=== PATIENT | male | born 1970 | race American Indian/Alaskan Native ===

== ENCOUNTER 2019-02-04 07:34 | Emergency (ER) | payer BC ==
[2019-02-04 07:47] VITALS: BP 138/73
[2019-02-04] MEDS ORDERED: Sodium Chloride 0.9% 1,000 ML IV ONE (07:57)
[2019-02-04] MEDS ORDERED: Ketorolac 30 MG/ML SDV IVPUSH ONE (08:00)
[2019-02-04] MEDS ORDERED: Ondansetron 4 MG/2 ML SDV ONE (08:02)
[2019-02-04] MEDS ORDERED: Ondansetron 4 MG Tab.DIS PO ONE (08:02)
[2019-02-04] MEDS ORDERED: Ondansetron 4 MG/2 ML SDV IVPUSH ONE (08:06)
--- NOTE | 2019-02-04 08:16 | EDM.PDOC ---
<Brittany Paige - Last Filed: 02/04/19 08:29> ED HPI GENERAL MEDICAL PROBLEM - General Chief Complaint: Abdominal Pain Stated Complaint: DIZZINESS,NAUSEA,ABDOMINAL CRAMPS Time Seen by Provider: 02/04/19 08:00 - History of Present Illness INITIAL COMMENTS - FREE TEXT/NARRATIVE: This is Dr. Paige dictating an addendum note as I am the supervising physician on this case. I personally seen and evaluated the patient and agree with above history and physical exam. On my personal evaluation the patient tells me he has had this pain on and off for at least a year if not longer and had a colonoscopy and endoscopy in the past which we have not documented as 2014. He says that he gets the pain in this left lower abdomen at least once a week and just allows it to subside naturally. He says that he does see blood in his stool when the pain happens and has some nausea but doesn't get any fevers or chills. He is vague about describing the pain. On my physical exam he has very minimal tenderness to deep palpation in the left lower quadrant and his bowel sounds are hypoactive and there is tympany on percussion of the upper abdomen. The patient is nontoxic-appearing and vitals have been reviewed. Not tremulous. All Above lab work and CAT scan will be reviewed for disposition. Have discussed with the patient that he likely needs repeat colonoscopy as it is been 4 years since his prior workup and there may be some new or evolving findings that need to be evaluated. He is aware of her limitation the ED and has seen one of our mid-level providers in the clinic in the past and can be referred back. - Related Data Allergies Allergy/AdvReac Type Severity Reaction Status Date / Time No Known Allergies Allergy Verified 02/04/19 07:47 Home Meds: Home Meds . [No Known Home Meds] 07/28/15 [History] Course - Vital Signs Last Recorded V/S: Last Vital Signs Temp 36.7 C 02/04/19 07:45 Pulse 68 02/04/19 07:45 Resp 18 02/04/19 07:45 BP 138/73 02/04/19 07:45 Pulse Ox 100 02/04/19 07:45 - Orders/Labs/Meds Labs: Laboratory Tests 02/04/19 02/04/19 02/04/19 Range/Units 07:58 07:58 07:58 WBC 7.66 (4.0-11.0) K/uL RBC 4.15 L (4.50-5.90) M/uL Hgb 14.0 (13.0-17.0) g/dL Hct 41.2 (38.0-50.0) % MCV 99.3 H (80.0-98.0) fL MCH 33.7 H (27.0-32.0) pg MCHC 34.0 (31.0-37.0) g/dL RDW Std Deviation 44.6 (28.0-62.0) fl RDW Coeff of [place] 12 (11.0-15.0) % Plt Count 277 (150-400) K/uL MPV 9.30 (7.40-12.00) fL Neut % (Auto) 76.6 (48.0-80.0) % Lymph % (Auto) 15.5 L (16.0-40.0) % Bland % (Auto) 7.2 (0.0-15.0) % Eos % (Auto) 0.4 (0.0-7.0) % Baso % (Auto) 0.3 (0.0-1.5) % Neut # (Auto) 5.9 H (1.4-5.7) K/uL Lymph # (Auto) 1.2 (0.6-2.4) K/uL Bland # (Auto) 0.6 (0.0-0.8) K/uL Eos # (Auto) 0.0 (0.0-0.7) K/uL Baso # (Auto) 0.0 (0.0-0.1) K/uL Nucleated RBC % 0.0 /100WBC Nucleated RBCs # 0 K/uL Lactate 1.7 (0.20-2.00) mmol/L Sodium 139 (136-148) mmol/L Potassium 4.1 (3.5-5.1) mmol/L Chloride 104 (98-107) mmol/L Carbon Dioxide 23.1 (21.0-32.0) mmol/L BUN 12 (7.0-18.0) mg/dL Creatinine 0.9 (0.8-1.3) mg/dL Est Cr Clr Drug Dosing 95.55 mL/min Estimated GFR (MDRD) > 60.0 ml/min Glucose 106 (74-106) mg/dL Calcium 8.6 (8.5-10.1) mg/dL Total Bilirubin 0.4 (0.2-1.0) mg/dL AST 43 H (15-37) IU/L ALT 22 (14-63) IU/L Alkaline Phosphatase 77 (46-116) U/L Total Protein 7.5 (6.4-8.2) g/dL Albumin 3.7 (3.4-5.0) g/dL Globulin 3.8 (2.6-4.0) g/dL Albumin/Globulin Ratio 1.0 (0.9-1.6) Urine Color Urine Appearance Urine pH (5.0-8.0) Ur Specific [place] (1.001-1.035) Urine Protein (NEGATIVE) mg/dL Urine Glucose (UA) (NEGATIVE) mg/dL Urine Ketones (NEGATIVE) mg/dL Urine Occult Blood (NEGATIVE) Urine Nitrite (NEGATIVE) Urine Bilirubin (NEGATIVE) Urine Urobilinogen (<2.0) EU/dL Ur Leukocyte Esterase (NEGATIVE) 02/04/19 Range/Units 08:08 WBC (4.0-11.0) K/uL RBC (4.50-5.90) M/uL Hgb (13.0-17.0) g/dL Hct (38.0-50.0) % MCV (80.0-98.0) fL MCH (27.0-32.0) pg MCHC (31.0-37.0) g/dL RDW Std Deviation (28.0-62.0) fl RDW Coeff of [place] (11.0-15.0) % Plt Count (150-400) K/uL MPV (7.40-12.00) fL Neut % (Auto) (48.0-80.0) % Lymph % (Auto) (16.0-40.0) % Bland % (Auto) (0.0-15.0) % Eos % (Auto) (0.0-7.0) % Baso % (Auto) (0.0-1.5) % Neut # (Auto) (1.4-5.7) K/uL Lymph # (Auto) (0.6-2.4) K/uL Bland # (Auto) (0.0-0.8) K/uL Eos # (Auto) (0.0-0.7) K/uL Baso # (Auto) (0.0-0.1) K/uL Nucleated RBC % /100WBC Nucleated RBCs # K/uL Lactate (0.20-2.00) mmol/L Sodium (136-148) mmol/L Potassium (3.5-5.1) mmol/L Chloride (98-107) mmol/L Carbon Dioxide (21.0-32.0) mmol/L BUN (7.0-18.0) mg/dL Creatinine (0.8-1.3) mg/dL Est Cr Clr Drug Dosing mL/min Estimated GFR (MDRD) ml/min Glucose (74-106) mg/dL Calcium (8.5-10.1) mg/dL Total Bilirubin (0.2-1.0) mg/dL AST (15-37) IU/L ALT (14-63) IU/L Alkaline Phosphatase (46-116) U/L Total Protein (6.4-8.2) g/dL Albumin (3.4-5.0) g/dL Globulin (2.6-4.0) g/dL Albumin/Globulin Ratio (0.9-1.6) Urine Color YELLOW Urine Appearance CLEAR Urine pH 7.0 (5.0-8.0) Ur Specific [place] 1.015 (1.001-1.035) Urine Protein NEGATIVE (NEGATIVE) mg/dL Urine Glucose (UA) NEGATIVE (NEGATIVE) mg/dL Urine Ketones NEGATIVE (NEGATIVE) mg/dL Urine Occult Blood NEGATIVE (NEGATIVE) Urine Nitrite NEGATIVE (NEGATIVE) Urine Bilirubin NEGATIVE (NEGATIVE) Urine Urobilinogen 0.2 (<2.0) EU/dL Ur Leukocyte Esterase NEGATIVE (NEGATIVE) Meds: Medications Discontinued Medications Generic Name Dose Route Start Last Admin Trade Name Freq PRN Reason Stop Dose Admin Sodium Chloride 1,000 mls @ 999 mls/hr 02/04/19 07:57 02/04/19 08:12 Normal Saline IV 02/04/19 08:57 999 mls/hr STAT ONE Administration Iopamidol 100 ml 02/04/19 09:21 02/04/19 09:21 Isovue Multipack-370 (76%) IVPUSH 07/01/19 09:22 100 ml ONETIME ONE Administration Ketorolac Tromethamine 30 mg 02/04/19 08:00 02/04/19 08:10 Toradol IVPUSH 02/04/19 08:01 30 mg ONETIME ONE Administration Ondansetron HCl 4 mg 02/04/19 08:02 02/04/19 08:07 Zofran Odt PO 02/04/19 08:03 Not Given ONETIME ONE Ondansetron HCl Confirm 02/04/19 08:02 02/04/19 08:07 Zofran Administered 02/04/19 08:03 Not Given Dose 4 mg .ROUTE .STK-MED ONE Ondansetron HCl 4 mg 02/04/19 08:06 02/04/19 08:10 Zofran IVPUSH 02/04/19 08:07 4 mg ONETIME ONE Administration Departure - Departure Disposition: Home, Self-Care 01 Clinical Impression: Abdominal pain Qualifiers: Abdominal location: left lower quadrant Qualified Code(s): R10.32 - Left lower quadrant pain - Discharge Information Referrals: PCP,None [Primary Care Provider] - Forms: ED Department Discharge Additional Instructions: Follow-up with you PCP in 1-2 weeks. Keep hydrated. I've sent prescriptions for your abdominal pain and nausea to your pharmacy. Return to the ED if getting worse, fevers, vomiting. <Aiden Cueto - Last Filed: 02/04/19 09:55> ED HPI GENERAL MEDICAL PROBLEM - History of Present Illness INITIAL COMMENTS - FREE TEXT/NARRATIVE: 48 y/o male presenting to the ER complaining of LLQ abdominal rated 8/10 since this morning. Some nausea, no vomiting. Endorsing diarrhea with some blood. Has had previous similar episode few years ago and lasted few days. Chart review shows that last colonoscopy was in 2014. Denies any history of diverticulosis. No chest pain, vomiting, dyspnea. No dysuria, new rashes or joint pains. No other sick contacts at home. No fevers. Last drink was last night drinking 3 beers. Left Lower Abdomen Pain Score (Numeric/FACES): 8 Past Medical History - Past Health History Medical/Surgical History: Denies Medical/Surgical History Respiratory History: Reports: Other (See Below) Other Respiratory History: Denies any problems, reports 30 yr history of smoking , current use 1 pack per day Gastrointestinal History: Reports: Hemorrhoids Other Gastrointestinal History: Abdominal pain, burning, 'only thing that helps is drinking fluids and laying down Musculoskeletal History: Reports: Fracture Other Musculoskeletal History: hx: Fracturing a finger - Infectious Disease History Infectious Disease History: Reports: Chicken Pox, Measles, Mumps - Past Surgical History GI Surgical History: Reports: Other (See Below) Social & Family History - Family History Family Medical History: Noncontributory - Tobacco Use Smoking Status *Q: Current Every Day Smoker Years of Tobacco use: 40 Packs/Tins Daily: 1 - Alcohol Use Days Per Week of Alcohol Use: 7 Number of Drinks Per Day: 3 Total Drinks Per Week: 21 - Recreational Drug Use Recreational Drug Use: No ED ROS GENERAL - Review of Systems Review Of Systems: ROS reveals no pertinent complaints other than HPI. ED EXAM, GI/ABD - Physical Exam Exam: See Below General Appearance: Alert, Anxious Respiratory/Chest: No Respiratory Distress, Lungs Clear, Normal Breath Sounds Cardiovascular: Normal Peripheral Pulses, Regular Rate, Rhythm, No Edema, No JVD GI/Abdominal Exam: Other (soft, active bowel sounds. Tender in LLQ. No rebound. Negative Benoit's, no RLQ pain. Negative leg raise.) Rectal (Males) Exam: Normal Rectal Tone, Other (internal hemorrhoids, to virginie blood.) Extremities: Normal Inspection, No Pedal Edema Neurological: Alert, Oriented Skin Exam: Warm, Dry Course - Orders/Labs/Meds Labs: Laboratory Tests 02/04/19 02/04/19 02/04/19 Range/Units 07:58 07:58 07:58 WBC 7.66 (4.0-11.0) K/uL RBC 4.15 L (4.50-5.90) M/uL Hgb 14.0 (13.0-17.0) g/dL Hct 41.2 (38.0-50.0) % MCV 99.3 H (80.0-98.0) fL MCH 33.7 H (27.0-32.0) pg MCHC 34.0 (31.0-37.0) g/dL RDW Std Deviation 44.6 (28.0-62.0) fl RDW Coeff of [place] 12 (11.0-15.0) % Plt Count 277 (150-400) K/uL MPV 9.30 (7.40-12.00) fL Neut % (Auto) 76.6 (48.0-80.0) % Lymph % (Auto) 15.5 L (16.0-40.0) % Bland % (Auto) 7.2 (0.0-15.0) % Eos % (Auto) 0.4 (0.0-7.0) % Baso % (Auto) 0.3 (0.0-1.5) % Neut # (Auto) 5.9 H (1.4-5.7) K/uL Lymph # (Auto) 1.2 (0.6-2.4) K/uL Bland # (Auto) 0.6 (0.0-0.8) K/uL Eos # (Auto) 0.0 (0.0-0.7) K/uL Baso # (Auto) 0.0 (0.0-0.1) K/uL Nucleated RBC % 0.0 /100WBC Nucleated RBCs # 0 K/uL Lactate 1.7 (0.20-2.00) mmol/L Sodium 139 (136-148) mmol/L Potassium 4.1 (3.5-5.1) mmol/L Chloride 104 (98-107) mmol/L Carbon Dioxide 23.1 (21.0-32.0) mmol/L BUN 12 (7.0-18.0) mg/dL Creatinine 0.9 (0.8-1.3) mg/dL Est Cr Clr Drug Dosing 95.55 mL/min Estimated GFR (MDRD) > 60.0 ml/min Glucose 106 (74-106) mg/dL Calcium 8.6 (8.5-10.1) mg/dL Total Bilirubin 0.4 (0.2-1.0) mg/dL AST 43 H (15-37) IU/L ALT 22 (14-63) IU/L Alkaline Phosphatase 77 (46-116) U/L Total Protein 7.5 (6.4-8.2) g/dL Albumin 3.7 (3.4-5.0) g/dL Globulin 3.8 (2.6-4.0) g/dL Albumin/Globulin Ratio 1.0 (0.9-1.6) Urine Color Urine Appearance Urine pH (5.0-8.0) Ur Specific [place] (1.001-1.035) Urine Protein (NEGATIVE) mg/dL Urine Glucose (UA) (NEGATIVE) mg/dL Urine Ketones (NEGATIVE) mg/dL Urine Occult Blood (NEGATIVE) Urine Nitrite (NEGATIVE) Urine Bilirubin (NEGATIVE) Urine Urobilinogen (<2.0) EU/dL Ur Leukocyte Esterase (NEGATIVE) 02/04/19 Range/Units 08:08 WBC (4.0-11.0) K/uL RBC (4.50-5.90) M/uL Hgb (13.0-17.0) g/dL Hct (38.0-50.0) % MCV (80.0-98.0) fL MCH (27.0-32.0) pg MCHC (31.0-37.0) g/dL RDW Std Deviation (28.0-62.0) fl RDW Coeff of [place] (11.0-15.0) % Plt Count (150-400) K/uL MPV (7.40-12.00) fL Neut % (Auto) (48.0-80.0) % Lymph % (Auto) (16.0-40.0) % Bland % (Auto) (0.0-15.0) % Eos % (Auto) (0.0-7.0) % Baso % (Auto) (0.0-1.5) % Neut # (Auto) (1.4-5.7) K/uL Lymph # (Auto) (0.6-2.4) K/uL Bland # (Auto) (0.0-0.8) K/uL Eos # (Auto) (0.0-0.7) K/uL Baso # (Auto) (0.0-0.1) K/uL Nucleated RBC % /100WBC Nucleated RBCs # K/uL Lactate (0.20-2.00) mmol/L Sodium (136-148) mmol/L Potassium (3.5-5.1) mmol/L Chloride (98-107) mmol/L Carbon Dioxide (21.0-32.0) mmol/L BUN (7.0-18.0) mg/dL Creatinine (0.8-1.3) mg/dL Est Cr Clr Drug Dosing mL/min Estimated GFR (MDRD) ml/min Glucose (74-106) mg/dL Calcium (8.5-10.1) mg/dL Total Bilirubin (0.2-1.0) mg/dL AST (15-37) IU/L ALT (14-63) IU/L Alkaline Phosphatase (46-116) U/L Total Protein (6.4-8.2) g/dL Albumin (3.4-5.0) g/dL Globulin (2.6-4.0) g/dL Albumin/Globulin Ratio (0.9-1.6) Urine Color YELLOW Urine Appearance CLEAR Urine pH 7.0 (5.0-8.0) Ur Specific [place] 1.015 (1.001-1.035) Urine Protein NEGATIVE (NEGATIVE) mg/dL Urine Glucose (UA) NEGATIVE (NEGATIVE) mg/dL Urine Ketones NEGATIVE (NEGATIVE) mg/dL Urine Occult Blood NEGATIVE (NEGATIVE) Urine Nitrite NEGATIVE (NEGATIVE) Urine Bilirubin NEGATIVE (NEGATIVE) Urine Urobilinogen 0.2 (<2.0) EU/dL Ur Leukocyte Esterase NEGATIVE (NEGATIVE) Departure - Departure Time of Disposition: 09:53
[2019-02-04 08:47] LABS: CHLORIDE,CL 104 mmol/L (98-107); SODIUM,NA 139 mmol/L (136-148)
[2019-02-04] MEDS ORDERED: Iopamidol 755 MG/ML 500 ML Multipack Bottle IVPUSH ONE (09:21)
--- NOTE | 2019-02-04 09:45 | CT ---
CT of the abdomen and pelvis with contrast. HISTORY: Left lower quadrant pain TECHNIQUE: Axial CT images were obtained of the abdomen and pelvis following administration of 100 mL of Isovue-370 in the right antecubital fossa without complication. Coronal and sagittal reconstructions obtained. FINDINGS: The lung bases are clear, no pleural effusion. Mild dependent atelectasis. The liver, spleen, adrenal glands, and pancreas appear normal. The gallbladder is normal. No bulky retroperitoneal lymphadenopathy or abdominal ascites. The kidneys enhance and function symmetrically without evidence of obstructive uropathy. The large and small bowel are normal in caliber without evidence of obstruction. No focal pericolonic inflammation or stranding. There is no bulky pelvic lymphadenopathy or free pelvic fluid. Mild degenerative changes within the hips. No suspicious osseous abnormalities. IMPRESSION: 1. No definite acute findings within the abdomen or pelvis.
== END 2019-02-04 10:06 | disposition home or self-care (01) ==
LOC: MW.ED 07:34
DX: R10.32 Left lower quadrant pain (principal); K64.8 Other hemorrhoids; F17.210 Nicotine dependence, cigarettes, uncomplicated
CPT/HCPCS: 36415; 74177; 80053; 81003; 83605; 85025; 96361; 96374; 96375; 99284; J1885; J2405; J7040; Q9967

== ENCOUNTER 2020-03-02 12:15 | Emergency (ER) | payer OTHER, BC ==
[2020-03-02] MEDS ORDERED: fentaNYL 100 MCG/2 ML SDV ONE (12:23)
[2020-03-02] MEDS ORDERED: fentaNYL 100 MCG/2 ML SDV IVPUSH ONE (12:24)
[2020-03-02] MEDS ORDERED: Lactated Ringers 1,000 ML IV ONE (12:29)
[2020-03-02] MEDS ORDERED: Sodium Chloride 0.9% 2.5 ML Syringe FLUSH PRN (12:29)
[2020-03-02] MEDS ORDERED: Sodium Chloride 0.9% 10 ML Syringe FLUSH PRN (12:29)
--- NOTE | 2020-03-02 12:31 | EDM.PDOC ---
ED HPI GENERAL MEDICAL PROBLEM - General Chief Complaint: Trauma Stated Complaint: TRAUMA ALERT Time Seen by Provider: 03/02/20 12:24 Source of Information: Reports: Patient, Old Records - History of Present Illness INITIAL COMMENTS - FREE TEXT/NARRATIVE: 49-year-old male with no past medical history presenting with injuries after a fall. Presents to the emergency department by private vehicle. The patient was working on a entryway of a building. He fell approximately 10 feet from the second floor onto the ground, landing onto his back. This was an accident. He did not strike his head or lose consciousness. Denies any medication use including antiplatelet or anti-coagulant medications. Patient arrives the emergency part complaining of significant pain to the right lumbar back in the midline thoracic spine. Obvious deformity to several fingers of the left hand. Back pain 10 out of 10. No other complaints at this point Left Arm Pain Score (Numeric/FACES): 10 - Related Data Allergies Allergy/AdvReac Type Severity Reaction Status Date / Time No Known Allergies Allergy Verified 03/02/20 12:43 Home Meds: Home Meds . [No Known Home Meds] 03/02/20 [History] Past Medical History - Past Health History Medical/Surgical History: Denies Medical/Surgical History Respiratory History: Reports: Other (See Below) Other Respiratory History: Denies any problems, reports 30 yr history of smoking, current use 1 pack per day Gastrointestinal History: Reports: Hemorrhoids Other Gastrointestinal History: Abdominal pain, burning, 'only thing that helps is drinking fluids and laying down Musculoskeletal History: Reports: Fracture Other Musculoskeletal History: hx: Fracturing a finger - Infectious Disease History Infectious Disease History: Reports: Chicken Pox, Measles, Mumps - Past Surgical History GI Surgical History: Reports: Other (See Below) Social & Family History - Family History Family Medical History: Noncontributory - Tobacco Use Smoking Status *Q: Current Every Day Smoker Tobacco Use Within Last Twelve Months: Cigarettes Years of Tobacco use: 35 Packs/Tins Daily: 1 - Alcohol Use Alcohol Use History: Yes Alcohol Use Frequency: Monthly Review of Systems - Review of Systems Review Of Systems: See Below Constitutional: Denies: Weakness Eyes: Denies: Vision Change Ears: Denies: Bloody Discharge, Clear Discharge Nose: Denies: Epistaxis, Pain, Bloody Discharge Mouth/Throat: Denies: Bleeding, Throat Swelling, Difficulty Swallowing Respiratory: Denies: Shortness of Breath, Cough Cardiovascular: Denies: Chest Pain GI/Abdominal: Denies: Abdominal Pain, Nausea, Vomiting Genitourinary: Reports: No Symptoms Musculoskeletal: Reports: Arm Pain (Right elbow), Back Pain (Right lumbar, upper thoracic midline), Hand Pain (Left). Denies: Neck Pain, Shoulder Pain, Leg Pain, Foot Pain, Joint Pain, Joint Swelling, Muscle Pain Skin: Reports: Bruising, Wound Neurological: Denies: Headache, Numbness, Seizure, Trouble Speaking, Change in Speech ED EXAM, GENERAL - Physical Exam Exam: See Below Free Text/Narrative:: Vital signs reviewed. Nursing notes reviewed. Constitutional: Awake, alert, appears uncomfortable. Head: Normocephalic, atraumatic. Eyes: EOMI, conjunctiva normal, no discharge, no scleral icterus. Pupils 3 mm bilaterally. Ears, Nose, Throat: External ears and nose normal, moist oral mucosa. No rhinorrhea or otorrhea. No miller sign or raccoon's eyes. Cardiovascular: 2+ radial pulse, capillary refill less than 2 seconds. Pulmonary: normal work of breathing, no accessory muscle use. CTA BL Abdomen/GI: Soft, nontender, nondistended, no guarding or rigidity, no masses. Stable pelvis Musculoskeletal: Deformities to the left third and fourth fingers. Pain with passive range of motion of the right elbow. Back: Tenderness to palpation of the upper thoracic midline vertebrae. Tenderness to the right lumbar back. Integumentary: Appropriate color for ethnicity, warm, dry, no pallor or jaundice, no rash. Large contusion to the right lumbar area of the back. Skin tear over the posterior aspect of the right elbow. 2 cm laceration over the PIP joint of the left middle finger, concerning for an open dislocation. 0.8 cm laceration over the volar aspect of the left fourth finger with associated tissue loss, not amenable to primary closure. Neurologic: Alert, answering questions appropriately, normal speech, no facial droop, moving all extremities well. Sensation intact light touch x4. Psychiatric: Appropriate mood and affect, normal thought process. ED TRAUMA PROCEDURES - Joint Reduction Left Fingers Sedation: Digital Block Local Anesthesia - Bupivicaine (Marcaine): 0.5% Plain Local Anesthetic Volume: 1cc Pre-Procedure NV Status: Normal Post-Procedure NV Status: Normal Technique: Traction/Counter Traction Number of Attempts: 1 Post-Reduction Imaging: Completely Reduced Joint Reduction Complications: No Joint Reduction Complication Description: Open dislocation of the PIP joint of the left third finger, reduced and placed in an aluminum foam splint after bandaging. Left open due to likely orthopedic intervention at receiving hospital. Left 2nd finger Sedation: Digital Block Local Anesthesia - Bupivicaine (Marcaine): 0.5% Plain Local Anesthetic Volume: 1cc Pre-Procedure NV Status: Normal Post-Procedure NV Status: Normal Technique: Traction/Counter Traction Number of Attempts: 1 Post-Reduction Imaging: Completely Reduced Joint Reduction Complications: No Progress/Comments: Placed in an aluminum foam splint after reduction. EKG INTERPRETATION EKG Interpretation Comments: 12-Lead ECG Interpretation Acquired: 3:40 PM Rhythm: Sinus rhythm Rate: 67 bpm [place]: Normal Intervals: Normal Ectopy: None Ischemic Changes: None apparent RV Strain: No obvious RV strain pattern. ST Segments/T-Waves: No notable changes Interpretation: Unremarkable Course - Vital Signs Text/Narrative:: Patient hemodynamically stable, afebrile, well-appearing, looks nontoxic. Differential diagnosis includes but is not limited to: intracranial injury/hemorrhage, skull fracture, facial fractures, spine fractures, chest injury, aortic injury, pneumothorax, hemothorax, intraabdominal hemorrhage, bowel injury, solid organ injury, extremity fractures, pelvis fracture, abrasions, soft tissue injuries, and many others. Roomed immediately upon arrival. IV access established and labs were sent off. E-FAST ultrasound study negative. X-rays of chest and pelvis showed no acute injuries. Given IV fentanyl for pain followed by hydromorphone. Cervical collar was applied. Normal INR and cell lines. Lactate elevated at 2.9. Remainder of labs reassuring. Taken to CT suite for king scan series, showing fracture of the superior endplate of T2, two right-sided lumbar spine transverse process fractures. Back to the ED. Concern for open dislocation of the PIP joint of the left third finger, also noted a closed dislocation of PIP joint of the left second finger. Patient underwent closed reduction of both of these finger dislocations as detailed in the procedure documentation. Given a tetanus immunization booster along with IV cefazolin. The open dislocation was copiously irrigated and then bandaged. Both dislocated fingers were placed in an aluminum splints after the reduction procedures. Patient was maintained in flat bedrest. He will need to be transported to a higher level of care for trauma service evaluation, I anticipate that he will need operative washout of the open dislocation of the left third finger. I spoke with Dr. Taylor at [facility] in [place] who agrees to accept the transfer. Transferred to the ground EMS crew in good condition. Study: e-FAST Ultrasound Vice President Payer: Leland Chang DO Indication: blunt trauma Windows: subxiphoid, thoracic, hepatorenal, splenorenal, suprapubic Findings: no pericardial effusion, bilateral sliding signs present, no pleural effusion, no intraabdominal free fluid. Impression: no suggestion of pneumothorax, pleural fluid collection (hemothorax vs pleural effusion), no pericardial effusion, no intraabdominal free fluid. Last Recorded V/S: Last Vital Signs Temp 30.4 C L 03/02/20 12:35 Pulse 53 L 03/02/20 12:35 Resp 20 03/02/20 12:35 BP 101/62 03/02/20 12:35 Pulse Ox 99 03/02/20 12:35 - Orders/Labs/Meds Orders: Active Orders 24 hr Category Date Time Status Cardiac Monitoring [RC] . DIRECTED Care 03/02/20 12:29 Active EKG 12 Lead [EKG Documentation Completion] [RC] STAT Care 03/02/20 12:34 Active EKG Documentation Completion [RC] STAT Care 03/02/20 15:44 Active Pulse Oximetry [RC] ASDIRECTED Care 03/02/20 12:29 Active Vaccines to be Administered [RC] PER UNIT ROUTINE Care 03/02/20 13:59 Active Saline Lock Insert [OM.PC] Stat Oth 03/02/20 12:29 Ordered Labs: Laboratory Tests 03/02/20 03/02/20 03/02/20 Range/Units 12:19 12:19 12:19 WBC 6.95 (4.0-11.0) K/uL RBC 3.97 L (4.50-5.90) M/uL Hgb 13.6 (13.0-17.0) g/dL Hct 40.4 (38.0-50.0) % MCV 101.8 H (80.0-98.0) fL MCH 34.3 H (27.0-32.0) pg MCHC 33.7 (31.0-37.0) g/dL RDW Std Deviation 46.3 (28.0-62.0) fl RDW Coeff of [place]ann[place] 12 (11.0-15.0) % Plt Count 310 (150-400) K/uL MPV 9.10 (7.40-12.00) fL Neut % (Auto) 46.4 L (48.0-80.0) % Lymph % (Auto) 45.6 H (16.0-40.0) % [place] % (Auto) 6.6 (0.0-15.0) % Eos % (Auto) 1.0 (0.0-7.0) % Baso % (Auto) 0.4 (0.0-1.5) % Neut # (Auto) 3.2 (1.4-5.7) K/uL Lymph # (Auto) 3.2 H (0.6-2.4) K/uL [place] # (Auto) 0.5 (0.0-0.8) K/uL Eos # (Auto) 0.1 (0.0-0.7) K/uL Baso # (Auto) 0.0 (0.0-0.1) K/uL Nucleated RBC % 0.0 /100WBC Nucleated RBCs # 0 K/uL INR 0.87 Lactate 2.9 H* (0.20-2.00) mmol/L Sodium (136-148) mmol/L Potassium (3.5-5.1) mmol/L Chloride (98-107) mmol/L Carbon Dioxide (21.0-32.0) mmol/L BUN (7.0-18.0) mg/dL Creatinine (0.8-1.3) mg/dL Est Cr Clr Drug Dosing mL/min Estimated GFR (MDRD) ml/min Glucose (74-106) mg/dL Calcium (8.5-10.1) mg/dL Total Bilirubin (0.2-1.0) mg/dL AST (15-37) IU/L ALT (14-63) IU/L Alkaline Phosphatase (46-116) U/L Troponin I (0.000-0.056) ng/mL Total Protein (6.4-8.2) g/dL Albumin (3.4-5.0) g/dL Globulin (2.6-4.0) g/dL Albumin/Globulin Ratio (0.9-1.6) Lipase (73-393) U/L 03/02/20 Range/Units 12:19 WBC (4.0-11.0) K/uL RBC (4.50-5.90) M/uL Hgb (13.0-17.0) g/dL Hct (38.0-50.0) % MCV (80.0-98.0) fL MCH (27.0-32.0) pg MCHC (31.0-37.0) g/dL RDW Std Deviation (28.0-62.0) fl RDW Coeff of [place] (11.0-15.0) % Plt Count (150-400) K/uL MPV (7.40-12.00) fL Neut % (Auto) (48.0-80.0) % Lymph % (Auto) (16.0-40.0) % [place] % (Auto) (0.0-15.0) % Eos % (Auto) (0.0-7.0) % Baso % (Auto) (0.0-1.5) % Neut # (Auto) (1.4-5.7) K/uL Lymph # (Auto) (0.6-2.4) K/uL [place] # (Auto) (0.0-0.8) K/uL Eos # (Auto) (0.0-0.7) K/uL Baso # (Auto) (0.0-0.1) K/uL Nucleated RBC % /100WBC Nucleated RBCs # K/uL INR Lactate (0.20-2.00) mmol/L Sodium 136 (136-148) mmol/L Potassium 4.2 (3.5-5.1) mmol/L Chloride 100 (98-107) mmol/L Carbon Dioxide 23.0 (21.0-32.0) mmol/L BUN 8 (7.0-18.0) mg/dL Creatinine 1.0 (0.8-1.3) mg/dL Est Cr Clr Drug Dosing 90.72 mL/min Estimated GFR (MDRD) > 60.0 ml/min Glucose 108 H (74-106) mg/dL Calcium 8.7 (8.5-10.1) mg/dL Total Bilirubin 0.8 (0.2-1.0) mg/dL AST 76 H (15-37) IU/L ALT 40 (14-63) IU/L Alkaline Phosphatase 88 (46-116) U/L Troponin I < 0.050 (0.000-0.056) ng/mL Total Protein 8.0 (6.4-8.2) g/dL Albumin 3.7 (3.4-5.0) g/dL Globulin 4.3 H (2.6-4.0) g/dL Albumin/Globulin Ratio 0.9 (0.9-1.6) Lipase 122 (73-393) U/L Meds: Medications Discontinued Medications Generic Name Dose Route Start Last Admin Trade Name Venturaq PRN Reason Stop Dose Admin Bupivacaine HCl 10 ml 03/02/20 14:59 03/02/20 15:30 Sensorcaine-Mpf 0.5% INJECT 03/02/20 15:00 10 ml ONETIME ONE Administration Bupivacaine HCl Confirm 03/02/20 15:00 03/02/20 15:30 Sensorcaine-Mpf 0.5% Administered 03/02/20 15:01 Not Given Dose 10 ml .ROUTE .STK-MED ONE Diphtheria/Tetanus/Acell Pertussis 0.5 ml 03/02/20 13:59 03/02/20 14:02 Adacel IM 03/02/20 14:00 0.5 ml .ONCE ONE Administration Fentanyl 75 mcg 03/02/20 12:24 03/02/20 12:30 Sublimaze IVPUSH 03/02/20 12:25 75 mcg ONETIME ONE Administration Fentanyl Confirm 03/02/20 12:23 03/02/20 12:30 Sublimaze Administered 03/02/20 12:24 Not Given Dose 100 mcg .ROUTE .STK-MED ONE Fentanyl 100 mcg 03/02/20 18:34 03/02/20 18:38 Fentanyl IVPUSH 03/02/20 18:35 100 mcg ONETIME ONE Administration Fentanyl Confirm 03/02/20 18:36 03/02/20 18:47 Fentanyl Administered 03/02/20 18:37 Not Given Dose 100 mcg .ROUTE .STK-MED ONE Hydromorphone HCl 1 mg 03/02/20 12:39 03/02/20 12:50 Dilaudid IVPUSH 03/02/20 12:40 1 mg ONETIME ONE Administration Hydromorphone HCl 1 mg 03/02/20 13:46 03/02/20 14:03 Dilaudid IVPUSH 03/02/20 13:47 1 mg ONETIME ONE Administration Lactated Ringer's 1,000 mls @ 999 mls/hr 03/02/20 12:29 03/02/20 12:34 Ringers, Lactated IV 03/02/20 13:29 999 mls/hr .BOLUS ONE Administration Cefazolin Sodium/Dextrose 2 gm 50 mls @ 100 mls/hr 03/02/20 14:18 03/02/20 14:50 / Premix IV 03/02/20 14:47 100 mls/hr ONETIME ONE Administration Sodium Chloride 10 ml 03/02/20 12:29 Saline Flush FLUSH ASDIRECTED PRN Keep Vein Open Sodium Chloride 2.5 ml 03/02/20 12:29 Saline Flush FLUSH ASDIRECTED PRN Keep Vein Open Departure - Departure Time of Disposition: 15:53 Disposition: DC/Tfer to [facility] 02 Clinical Impression: Fracture of thoracic spine at T1-T2 level, Closed dislocation of left index finger Lumbar transverse process fracture Qualifiers: Encounter type: initial encounter Fracture type: closed Qualified Code(s): S32.009A - Unspecified fracture of unspecified lumbar vertebra, initial encounter for closed fracture Dislocation of left middle finger Qualifiers: Encounter type: initial encounter Qualified Code(s): S63.253A - Unspecified dislocation of left middle finger, initial encounter - Discharge Information Referrals: PCP,None [Primary Care Provider] - Forms: ED Department Discharge Sepsis Event Note (ED) - Focused Exam Vital Signs: Vital Signs Temp Pulse Resp BP Pulse Ox 03/02/20 12:35 30.4 C L 53 L 20 101/62 99 - My Orders Last 24 Hours: My Active Orders 03/02/20 12:29 Cardiac Monitoring [RC] . DIRECTED Pulse Oximetry [RC] ASDIRECTED Saline Lock Insert [OM.PC] Stat 03/02/20 12:34 EKG 12 Lead [EKG Documentation Completion] [RC] STAT 03/02/20 13:59 Vaccines to be Administered [RC] PER UNIT ROUTINE 03/02/20 15:44 EKG Documentation Completion [RC] STAT - Assessment/Plan Last 24 Hours: My Active Orders 03/02/20 12:29 Cardiac Monitoring [RC] . DIRECTED Pulse Oximetry [RC] ASDIRECTED Saline Lock Insert [OM.PC] Stat 03/02/20 12:34 EKG 12 Lead [EKG Documentation Completion] [RC] STAT 03/02/20 13:59 Vaccines to be Administered [RC] PER UNIT ROUTINE 03/02/20 15:44 EKG Documentation Completion [RC] STAT
[2020-03-02] MEDS ORDERED: HYDROmorphone 1 MG/ML Syringe IVPUSH ONE ×2 (12:39→13:46)
[2020-03-02 12:43] VITALS: BP 101/62; PULSE 53
[2020-03-02 12:56] LABS: BLOOD UREA NITROGEN,BUN 8 mg/dL (7.0-18.0); CHLORIDE,CL 100 mmol/L (98-107); GLUCOSE RANDOM 108 mg/dL (74-106); LIPASE 122 U/L (73-393); POTASSIUM,K 4.2 mmol/L (3.5-5.1); SODIUM,NA 136 mmol/L (136-148)
--- NOTE | 2020-03-02 13:03 | CR ---
Pelvis: AP view of the pelvis was obtained. Comparison: No prior pelvis study is available. Joint spaces within both hips and within the sacroiliac joints appear normal. No acute fracture or other abnormality is appreciated. Impression: 1. Nothing acute is appreciated on AP pelvis study. Diagnostic code #1 This report was dictated in MDT
--- NOTE | 2020-03-02 13:03 | CR ---
Chest: Supine portable view of the chest was obtained. Comparison: Prior chest x-ray of 10/11/10. Heart size and mediastinum are normal. Lungs are clear with no acute parenchymal change. Bony structures are grossly intact. Impression: 1. Nothing acute is appreciated on supine portable chest x-ray. Diagnostic code #1 This report was dictated in MDT
[2020-03-02] MEDS ORDERED: Diphtheria,Pertussis(Acell),Tetanus Vaccine 0.5 ML Syringe IM ONE (13:59)
[2020-03-02] MEDS ORDERED: ceFAZolin 2 GM in Premix Bag 1 BAG IV ONE (14:18)
--- NOTE | 2020-03-02 14:29 | CR ---
Addendum: Additional dislocation seen within the PIP joint of the 2nd digit. Middle phalanx is displaced posteriorly. --- Addendum1 above dictated on [03/02/2020 14:25] by [Be Green, Jaden Melgoza] --- --- Addendum1 above signed on [03/02/2020 14:27] by [Be Green, Jaden Melgoza] --- --- Original report below dictated on [03/02/2020 13:25] by [Be Green, Jaden Melgoza] --- --- Original report below signed on [03/02/2020 13:26] by [Be Green, Jaden Melgoza] --- Left hand: 3 views of the left hand were obtained. Comparison: No previous hand study. Dislocation is noted within the PIP joint of the 3rd finger. Joint space narrowing is noted within the CMC joint of the thumb as well as off the distal navicular bone. No acute fracture or other abnormality is appreciated. Impression: 1. Dislocated PIP joint of the left 3rd finger. 2. Mild degenerative change. Diagnostic code #3 This report was dictated in MDT --- Addendum1 signed ---
--- NOTE | 2020-03-02 14:30 | CR ---
Right hip: AP and frog-leg lateral views of the right hip were obtained. Comparison: No previous study. Joint space within the right hip is preserved. Right sacroiliac joint is normal. No acute fracture or other bony abnormality is appreciated. Impression: 1. No abnormality is appreciated on 2 view right hip exam. Diagnostic code #1 This report was dictated in MDT
--- NOTE | 2020-03-02 14:34 | CT ---
Head CT Technique: Multiple axial sections through the brain were obtained. Intravenous contrast was not utilized. Comparison: No prior intracranial imaging is available. Findings: Ventricles along with basal cisterns and sulci the convexities are mildly prominent. No abnormal parenchymal densities are seen. No evidence of intracranial hemorrhage. No midline shift or mass-effect is seen. Bone window settings were reviewed. Mild mucosal thickening is seen within the inferior maxillary sinuses. Mastoid sinuses are clear. No acute calvarial finding is seen. Impression: 1. Minimal paranasal sinus findings most likely chronic. 2. Nothing acute is appreciated on noncontrast head CT exam. Diagnostic code #2 This report was dictated in MDT
--- NOTE | 2020-03-02 14:34 | CT ---
Fracture was identified within the upper thoracic spine. In the body of the of report this as mentioned is T2 and in the impression this is reported as T1. Body of the report is correct with this superior endplate compression fracture being within T2. My apologies for this confusion. --- Addendum1 above dictated on [03/02/2020 14:23] by [Be Green, Jaden Melgoza] --- --- Addendum1 above signed on [03/02/2020 14:25] by [Be Green Hilton J.] --- --- Original report below dictated on [03/02/2020 13:30] by [Be Green Hilton J.] --- --- Original report below signed on [03/02/2020 13:32] by [Be Green Hilton J.] --- CT cervical spine Technique: Multiple axial sections were obtained from above C1 inferiorly to the bottom of T3. Reconstructed sagittal and coronal images were reviewed. Findings: Severe disc space narrowing at C5-6 with posterior osteophytes and anterior osteophytes. Mild disc space narrowing is noted C6-7 with posterior osteophytes and minimal anterior osteophytes. Minimal spondylolisthesis noted at C7-T1 which is felt compatible with degenerative apophyseal change. Mild superior endplate concavity is noted of T2 which shows acute fracture lines compatible with acute fracture. Fracture does not extend into the posterior elements at this level. No additional fracture or other bony abnormality is appreciated. Slight degenerative change is seen within the apophyseal joints throughout the cervical spine. No abnormal subluxation is seen. Moderate right-sided neural foraminal stenosis is noted at C5-6. Other neural foramina are patent. No central canal stenosis is noted. Impression: 1. Fracture within the superior endplate of T1 causing minimal endplate concavity. This fracture is stable. 2. Degenerative change as noted above. No other acute abnormality is seen. Diagnostic code #5 This report was dictated in MDT --- Addendum1 signed ---
--- NOTE | 2020-03-02 14:46 | CT ---
CT abdomen and pelvis Technique: Multiple axial sections were obtained from above the dome of the diaphragm inferiorly through the pubic symphysis. Intravenous contrast was utilized. Artifact is noted from the patient's arms along the side. No oral contrast has been given. Comparison: No prior abdominal imaging is available. Findings: Visualized lung bases shows mild dependent atelectasis. Liver shows no discrete abnormality. Spleen appears within normal limits. Small hiatal hernia is noted. Adrenal glands show no nodule. Gallbladder contains no calcified gallstones. Kidneys show symmetric contrast enhancement without hydronephrosis or mass. Aorta shows atherosclerotic calcification without aneurysm. No retroperitoneal adenopathy or mesenteric abnormalities are seen. No pelvic mass or adenopathy is seen. No free fluid or inflammatory change is appreciated. Appendix is seen and is normal in size. Bone window settings were reviewed which shows a transverse process fracture on the right side at L3 as well as transverse process fracture on the right side at L4. No other acute osseous finding is appreciated. Severe disc space narrowing at L5-S1 with vacuum phenomena. Mild spondylolisthesis is noted at L4-5 due to degenerative apophyseal change. Impression: 1. Fractures within the transverse process on the right side at L3 and L4. 2. No other acute abnormality is appreciated on CT study of the abdomen and pelvis. Diagnostic code #3 This report was dictated in MDT
--- NOTE | 2020-03-02 14:49 | CT ---
CT chest Technique: Multiple axial sections through the chest were obtained. Intravenous contrast was utilized. Comparison: No prior chest CT is available, chest x-ray performed on the same day is available. Findings: Aorta shows no aneurysm. Mediastinum and hilar regions appear within normal limits. No axillary adenopathy is seen. No pericardial thickening or fluid is seen. Dependent atelectasis is seen posteriorly within both lungs. Lungs otherwise are clear with no acute parenchymal change. No pleural effusions or pneumothorax is seen. Bone window settings were reviewed. No acute osseous finding is appreciated. Impression: 1. Findings as noted above. Nothing acute is appreciated on CT study of the chest. Diagnostic code #2 This report was dictated in MDT
[2020-03-02] MEDS ORDERED: Bupivacaine 0.5% 10 ML SDV INJECT ONE (14:59)
[2020-03-02] MEDS ORDERED: Bupivacaine 0.5% 10 ML SDV ONE (15:00)
--- NOTE | 2020-03-02 15:09 | CT ---
Addendum: Thoracic report was reported as nothing acute. Fracture that was noted on cervical spine study within T2 is noted on the thoracic spine involving the superior endplate of T2. --- Addendum1 above dictated on [03/02/2020 14:25] by [Be Green, Jaden Melgoza] --- --- Addendum1 above signed on [03/02/2020 14:26] by [Be Green Hilton J.] --- --- Original report below dictated on [03/02/2020 14:07] by [Be Green, Jaden Melgoza] --- --- Original report below signed on [03/02/2020 14:07] by [Be Green Hilton J.] --- CT thoracic spine Technique: Multiple axial sections were obtained through the thoracic spine. Reconstructed coronal and sagittal images were obtained. Findings: Vertebral body heights are maintained. Mild disc space narrowing is noted within the mid and upper thoracic spine. No fracture is seen within the thoracic spine. No abnormal subluxation is seen. No bony central or bony neural foraminal stenosis is seen. Impression: 1. Mild degenerative change. 2. Nothing acute is appreciated on CT study of the thoracic spine. Diagnostic code #2 This report was dictated in MDT --- Addendum1 signed ---
--- NOTE | 2020-03-02 15:09 | CT ---
CT lumbar spine Technique: Multiple axial sections through the lumbar spine were obtained. Reconstructed coronal and sagittal images were obtained. Findings: Mildly displaced fracture is noted within the right transverse process of L3 as well as mildly displaced fracture involving the right transverse process of L4. Mild spondylolisthesis is seen at L4-5 due to to severe degenerative apophyseal change. Severe disc space narrowing is noted at L5-S1 with vacuum disc phenomena. Moderate degenerative apophyseal change is seen. No acute disc herniation is appreciated. No bony central or bony neural foraminal stenosis is seen. Impression: 1. Fractures within the transverse process on the right side at L3 and L4. 2. Degenerative change as noted above. 3. No other acute abnormality is appreciated on CT study of the lumbar spine. Diagnostic code #3 This report was dictated in MDT
[2020-03-02] MEDS ORDERED: fentaNYL 50 MCG/ML SDV IVPUSH ONE (18:34)
[2020-03-02] MEDS ORDERED: fentaNYL 50 MCG/ML SDV ONE (18:36)
--- NOTE | 2020-03-02 18:37 | CR ---
Left hand: 3 views of the left hand were obtained. Comparison: Prior left hand study performed earlier on the same day (1:48 PM). Findings: Previous dislocations have been reduced. Small calcifications are seen off the PIP joints of the 3rd and 4th digits most likely representing minimal avulsion fractures. Soft tissue swelling is noted within the 2nd and 3rd fingers. No additional fracture or other bony abnormality is appreciated. Impression: 1. Previous dislocations have been reduced. 2. Small calcifications off the PIP joint of the 3rd and 4th digits most likely relating to small avulsion fractures. 3. Soft tissue swelling within the 2nd and 3rd fingers. Diagnostic code #3 This report was dictated in MDT
== END 2020-03-02 18:48 ==
LOC: MW.ED 12:15
DX: S63.283A Dislocation of proximal interphalangeal joint of left middle finger, initial encounter (principal); S32.039A Unspecified fracture of third lumbar vertebra, initial encounter for closed fracture; F17.210 Nicotine dependence, cigarettes, uncomplicated; Z23 Encounter for immunization; W13.9XXA Fall from, out of or through building, not otherwise specified, initial encounter
CPT/HCPCS: 26770; 70450; 71045; 71260; 72125; 72128; 72131; 72170; 73130; 73502; 74177; 80053; 83605; 83690; 84484; 85025; 85610; 90471; 90715; 93005; 96365; 96375; 96376; 99285; J0690; J1170; J3010; J3490; J7120